=== PATIENT | male | born 1990 | race Caucasian/White ===

== ENCOUNTER 2024-09-01 12:21 | Inpatient (IN) | payer MEDICAID, OTHER, SELFPAY ==
[~2024-09-01] VITALS: Ht 149.9 cm; Wt 74.6 kg
[2024-09-01 13:31] LABS: BASO # 0.1 10^3/uL (0.0-0.2); BASO % 0.4 % (0.0-1.0); EOS # 0.1 10^3/uL (0.0-0.5); EOS % 0.7 % (0.0-3.0); HEMATOCRIT 36.5 % (42.0-52.0); HEMOGLOBIN 11.9 g/dl (13.5-17.5); LYMPH # 1.5 10^3/uL (1.5-5.0); LYMPH % 10.1 % (24.0-44.0); MEAN CORPUSCULAR HEMOGLOBIN 26.1 pg (27.0-33.0); MEAN CORPUSCULAR HGB CONC 32.6 g/dl (32.0-36.5); MONO # 0.8 10^3/uL (0.0-0.8); MONO % 5.5 % (2.0-8.0); NEUTROPHILS # 12.4 10^3/uL (1.5-8.5); NEUTROPHILS % 82.8 % (36.0-66.0); PLATELET COUNT, AUTOMATED 387 10^3/uL (150-450); RED BLOOD COUNT 4.56 10^6/uL (4.30-6.10)
[2024-09-01 13:46] LABS: ERYTHROCYTE SEDIMENTATION RATE 114 mm/hr (0-15)
[2024-09-01 13:47] LABS: BLOOD UREA NITROGEN 8 MG/DL (9-23); CALCIUM LEVEL 8.2 MG/DL (8.5-10.1); CARBON DIOXIDE LEVEL 29 MMOL/L (20-31); CHLORIDE LEVEL 93 MMOL/L (98-107); GLOMERULAR FILTRATION RATE > 60.0 (>60); GLUCOSE, FASTING 134 MG/DL (60-100); POTASSIUM SERUM 3.1 MMOL/L (3.5-5.1); SODIUM LEVEL 131 MMOL/L (136-145)
[2024-09-01 14:00] LABS: C REACTIVE PROTEIN QUANTITATIV 24.28 MG/DL (<1.0)
[2024-09-01] MEDS ORDERED: ISOVUE-370 76% 100ML VIAL As Ordered ONE (14:14)
[2024-09-01] MEDS: ONDANSETRON 4MG 2ML VIAL IV ONE (14:56)
[2024-09-01] MEDS: MORPHINE 4 MG/ML 1ML VIAL IV ONE (15:07)
[2024-09-01] MEDS: PIPERACILLIN/TAZOBACTAM SOD 3.375 GM in DEXTROSE 5% (D5W) ADV/MINI-BAG 50 ML IV ONE (15:07)
[2024-09-01] MEDS: NS (Normal Saline) 0.9% 1,990 ML in IV 1 EA IV ONE (15:08)
[2024-09-01] MEDS: ACETAMINOPHEN *IV* 1,000 MG in IV 1 EA IV ONE (16:00)
[2024-09-01] MEDS ORDERED: SERT50TA29 PO (16:34)
[2024-09-01] MEDS ORDERED: LISI10TA22 PO (16:34)
[2024-09-01] MEDS ORDERED: LEVO25TA5 PO (16:34)
[2024-09-01] MEDS ORDERED: PANT-23 PO (16:37)
[2024-09-01] MEDS ORDERED: HYDR-3363 PO (16:39)
[2024-09-01] MEDS ORDERED: HOME MED LIST COMPLETE! XX SCH (16:40)
[2024-09-01] MEDS ORDERED: ACETAMINOPHEN 325 MG TAB PO PRN (17:20)
[2024-09-01] MEDS: VANCOMYCIN HCL 1,250 MG, VIAL MATE ADAPTER 1 EACH in NS 250 ML IV ONE (18:07)
[2024-09-01 18:54] LABS: INR 1.17; PARTIAL THROMBOPLASTIN TIME 29.4 SECONDS (24.8-34.2); PROTHROMBIN TIME 15.2 SECONDS (12.5-14.5)
[2024-09-01 19:06] LABS: ALBUMIN 2.2 G/DL (3.2-5.2); BILIRUBIN,DIRECT 0.3 MG/DL (<0.4); BILIRUBIN,TOTAL 0.5 MG/DL (0.3-1.2); TOTAL PROTEIN 5.9 G/DL (5.7-8.2)
[2024-09-01] MEDS: KETOROLAC 30 MG/ML 1ML VIAL IV PRN (19:44)
[2024-09-01] MEDS ORDERED: POTASSIUM CHLORIDE 10MEQ SR TABLET PO SCH (20:00)
[2024-09-01] MEDS: ONDANSETRON 4MG 2ML VIAL IV PRN (20:13)
[2024-09-01] MEDS: NS (Normal Saline) 0.9% 1,000 ML IV SCH (20:30)
[2024-09-01 21:00] VITALS: BP 125/71; TEMP 97.6; O2SAT 97
[2024-09-01] MEDS ORDERED: PANTOPRAZOLE 40MG TAB (PROTONIX) PO SCH (21:00)
[2024-09-01] MEDS: oxyCODONE 5MG TAB PO PRN (21:23)
[2024-09-01] MEDS: PIPERACILLIN/TAZOBACTAM SOD 3.375 GM in DEXTROSE 5% (D5W) ADV/MINI-BAG 50 ML IV SCH (21:23)
[2024-09-01] MEDS: PANTOPRAZOLE 40MG VIAL IV SCH (21:30)
[2024-09-01] MEDS: KCL 10MEQ/100ML SWI (KRUN) 10 MEQ in IV 1 EA IV SCH (21:30)
[2024-09-01 22:10] LABS: BLOOD UREA NITROGEN 6 MG/DL (9-23); CALCIUM LEVEL 7.5 MG/DL (8.5-10.1); CARBON DIOXIDE LEVEL 27 MMOL/L (20-31); CHLORIDE LEVEL 102 MMOL/L (98-107); CREATININE FOR GFR 0.61 MG/DL (0.70-1.30); GLOMERULAR FILTRATION RATE > 60.0 (>60); GLUCOSE, FASTING 94 MG/DL (60-100); POTASSIUM SERUM 3.1 MMOL/L (3.5-5.1); SODIUM LEVEL 138 MMOL/L (136-145)
[2024-09-01 23:48] VITALS: BP 130/72; TEMP 98; O2SAT 98
[2024-09-02] VITALS (7 sets, daily range): BP systolic 101–134; BP diastolic 61–80; TEMP 97.3–98.6; O2SAT 95–99
[2024-09-02] MEDS: VANCOMYCIN HCL 1,000 MG, VIAL MATE ADAPTER 1 EACH in NS 250 ML IV SCH ×2 (00:24→09:56)
[2024-09-02] MEDS: ACETAMINOPHEN *IV* 1,000 MG in IV 1 EA IV ONE (00:24)
[2024-09-02] MEDS: POTASSIUM CHLORIDE 10% LIQ 20MEQ/15ML UDC PO ONE (00:24)
[2024-09-02] MEDS: HEPARIN SOD (PORCINE) 5000UNITS/ML 1ML VIAL/SYRINGE SC SCH (05:09)
[2024-09-02] MEDS: LEVOTHYROXINE 25MCG TABLET (0.025MG) PO SCH (05:09)
[2024-09-02] MEDS: PROMETHAZINE 25MG/ML 1ML VIAL IM ONE (05:20)
[2024-09-02 06:29] LABS: HEMATOCRIT 32.2 % (42.0-52.0); HEMOGLOBIN 10.2 g/dl (13.5-17.5); MEAN CORPUSCULAR HGB CONC 31.7 g/dl (32.0-36.5); MEAN CORPUSCULAR VOLUME 82.1 fl (80.0-96.0); RED BLOOD COUNT 3.92 10^6/uL (4.30-6.10); WHITE BLOOD COUNT 10.8 10^3/uL (4.0-10.0)
[2024-09-02 06:32] LABS: PLATELET COUNT, AUTOMATED 287 10^3/uL (150-450)
[2024-09-02 06:39] LABS: ALKALINE PHOSPHATASE 132 U/L (40-129); ALT/SGPT 65 U/L (7.0-40); AST/SGOT 41 U/L (<34); BILIRUBIN,TOTAL 0.3 MG/DL (0.3-1.2); BLOOD UREA NITROGEN 6 MG/DL (9-23); CALCIUM LEVEL 7.5 MG/DL (8.5-10.1); CARBON DIOXIDE LEVEL 26 MMOL/L (20-31); CHLORIDE LEVEL 105 MMOL/L (98-107); CREATININE FOR GFR 0.58 MG/DL (0.70-1.30); GLOMERULAR FILTRATION RATE > 60.0 (>60); GLUCOSE, FASTING 95 MG/DL (60-100); POTASSIUM SERUM 3.3 MMOL/L (3.5-5.1); SODIUM LEVEL 138 MMOL/L (136-145); TOTAL PROTEIN 5.5 G/DL (5.7-8.2)
[2024-09-02 08:08] LABS: VANCOMYCIN RANDOM 18.3 UG/ML
[2024-09-02] MEDS: POTASSIUM CHLORIDE 10MEQ SR TABLET PO SCH (08:26)
[2024-09-02] MEDS: SERTRALINE HCL 50 MG TAB PO SCH (08:26)
[2024-09-02] MEDS: LORazepam 2 MG/ML 1ML VIAL IV ONE (13:31)
[2024-09-02] MEDS: MORPHINE 4 MG/ML 1ML VIAL IV ONE (13:31)
[2024-09-02] MEDS: MOM 30ML SUSPENSION UDC PO SCH (16:29)
[2024-09-02] MEDS: MIRALAX *UNIT DOSE* 17GM PACKET PO SCH (18:15)
[2024-09-02] MEDS: SANTYL OINT 30GM TOP SCH (20:21)
[2024-09-02] MEDS: oxyCODONE 5MG TAB PO PRN (23:56)
[2024-09-03] VITALS (8 sets, daily range): BP systolic 99–142; BP diastolic 55–94; TEMP 96.8–98; O2SAT 94–98
[2024-09-03 05:56] LABS: HEMOGLOBIN 9.9 g/dl (13.5-17.5); MEAN CORPUSCULAR HEMOGLOBIN 26.1 pg (27.0-33.0); MEAN CORPUSCULAR HGB CONC 30.9 g/dl (32.0-36.5); MEAN CORPUSCULAR VOLUME 84.2 fl (80.0-96.0); PLATELET COUNT, AUTOMATED 290 10^3/uL (150-450); WHITE BLOOD COUNT 7.9 10^3/uL (4.0-10.0)
[2024-09-03 06:18] LABS: ALBUMIN 1.8 G/DL (3.2-5.2); ALKALINE PHOSPHATASE 102 U/L (40-129); ALT/SGPT 47 U/L (7.0-40); AST/SGOT 22 U/L (<34); BILIRUBIN,TOTAL 0.2 MG/DL (0.3-1.2); BLOOD UREA NITROGEN 9 MG/DL (9-23); CALCIUM LEVEL 7.7 MG/DL (8.5-10.1); CARBON DIOXIDE LEVEL 25 MMOL/L (20-31); CHLORIDE LEVEL 110 MMOL/L (98-107); GLOMERULAR FILTRATION RATE > 60.0 (>60); GLUCOSE, FASTING 87 MG/DL (60-100); POTASSIUM SERUM 3.8 MMOL/L (3.5-5.1); SODIUM LEVEL 144 MMOL/L (136-145); TOTAL PROTEIN 5.1 G/DL (5.7-8.2)
[2024-09-03] MEDS: DOCUSATE SODIUM 100MG CAPSULE PO SCH (08:22)
[2024-09-03] MEDS: POTASSIUM CHLORIDE 10MEQ SR TABLET PO SCH (08:22)
[2024-09-03] MEDS: SENNA 8.6 MG TAB (SENOKOT) PO SCH (20:29)
[2024-09-04 03:47] VITALS: BP 136/87; TEMP 98; O2SAT 94
[2024-09-04 05:10] LABS: HEMATOCRIT 33.2 % (42.0-52.0); HEMOGLOBIN 10.3 g/dl (13.5-17.5); MEAN CORPUSCULAR HEMOGLOBIN 26.1 pg (27.0-33.0); MEAN CORPUSCULAR VOLUME 84.3 fl (80.0-96.0); PLATELET COUNT, AUTOMATED 330 10^3/uL (150-450); RED BLOOD COUNT 3.94 10^6/uL (4.30-6.10); WHITE BLOOD COUNT 7.3 10^3/uL (4.0-10.0)
[2024-09-04 05:39] LABS: ALBUMIN 1.8 G/DL (3.2-5.2); ALKALINE PHOSPHATASE 98 U/L (40-129); ALT/SGPT 38 U/L (7.0-40); AST/SGOT 22 U/L (<34); BILIRUBIN,TOTAL < 0.2 MG/DL (0.3-1.2); BLOOD UREA NITROGEN 12 MG/DL (9-23); CALCIUM LEVEL 7.5 MG/DL (8.5-10.1); CARBON DIOXIDE LEVEL 25 MMOL/L (20-31); CHLORIDE LEVEL 109 MMOL/L (98-107); CREATININE FOR GFR 1.59 MG/DL (0.70-1.30); GLOMERULAR FILTRATION RATE 58.8 (>60); GLUCOSE, FASTING 93 MG/DL (60-100); POTASSIUM SERUM 3.9 MMOL/L (3.5-5.1); SODIUM LEVEL 142 MMOL/L (136-145); TOTAL PROTEIN 5.1 G/DL (5.7-8.2)
[2024-09-04 07:31] VITALS: BP 126/72; TEMP 97.6; O2SAT 97
[2024-09-04] MEDS: NS (Normal Saline) 0.9% 1,000 ML IV SCH (08:06)
[2024-09-04 12:09] VITALS: BP 144/86; TEMP 98.1; O2SAT 98
[2024-09-04] MEDS: LACTULOSE 20GM/30ML SYRUP UDC PO SCH (12:58)
[2024-09-04] MEDS ORDERED: PERCOCET 5MG/325MG TAB PO PRN (13:10)
[2024-09-04] MEDS: PERCOCET 5MG/325MG TAB PO PRN (13:23)
[2024-09-04 16:16] VITALS: BP 148/87; TEMP 98.2; O2SAT 97
[2024-09-04 19:51] VITALS: BP 127/79; TEMP 98.2; O2SAT 97
[2024-09-04 23:56] VITALS: BP 115/72; TEMP 98.5; O2SAT 98
[2024-09-05 03:16] VITALS: BP 131/82; TEMP 98.2; O2SAT 98
[2024-09-05] MEDS: PROMETHAZINE 25MG/ML 1ML VIAL IM ONE (04:15)
[2024-09-05] MEDS: PROMETHAZINE 25 MG TAB PO ONE (04:38)
[2024-09-05 05:43] LABS: HEMATOCRIT 35.2 % (42.0-52.0); MEAN CORPUSCULAR HEMOGLOBIN 26.3 pg (27.0-33.0); MEAN CORPUSCULAR HGB CONC 31.3 g/dl (32.0-36.5); PLATELET COUNT, AUTOMATED 365 10^3/uL (150-450); RED BLOOD COUNT 4.19 10^6/uL (4.30-6.10); WHITE BLOOD COUNT 6.7 10^3/uL (4.0-10.0)
[2024-09-05 06:20] LABS: ALBUMIN 2.1 G/DL (3.2-5.2); ALKALINE PHOSPHATASE 116 U/L (40-129); ALT/SGPT 36 U/L (7.0-40); AST/SGOT 23 U/L (<34); BILIRUBIN,TOTAL 0.2 MG/DL (0.3-1.2); BLOOD UREA NITROGEN 7 MG/DL (9-23); CALCIUM LEVEL 7.5 MG/DL (8.5-10.1); CARBON DIOXIDE LEVEL 25 MMOL/L (20-31); CHLORIDE LEVEL 109 MMOL/L (98-107); CREATININE FOR GFR 1.31 MG/DL (0.70-1.30); GLOMERULAR FILTRATION RATE > 60.0 (>60); GLUCOSE, FASTING 92 MG/DL (60-100); SODIUM LEVEL 144 MMOL/L (136-145); TOTAL PROTEIN 5.9 G/DL (5.7-8.2)
[2024-09-05 06:31] VITALS: BP 141/91; TEMP 97.9; O2SAT 100
[2024-09-05 16:31] VITALS: BP 143/76; TEMP 98.3; O2SAT 100
[2024-09-05 20:15] VITALS: BP 146/79; TEMP 99.2; O2SAT 98
[2024-09-05 23:06] VITALS: BP 135/63; TEMP 98.6; O2SAT 95
[2024-09-06 04:31] VITALS: BP 136/80; TEMP 98.1; O2SAT 96
[2024-09-06 06:16] LABS: HEMATOCRIT 32.2 % (42.0-52.0); HEMOGLOBIN 10.2 g/dl (13.5-17.5); MEAN CORPUSCULAR HEMOGLOBIN 26.2 pg (27.0-33.0); MEAN CORPUSCULAR HGB CONC 31.7 g/dl (32.0-36.5); MEAN CORPUSCULAR VOLUME 82.6 fl (80.0-96.0); PLATELET COUNT, AUTOMATED 383 10^3/uL (150-450); WHITE BLOOD COUNT 7.2 10^3/uL (4.0-10.0)
[2024-09-06 06:35] LABS: ALBUMIN 1.8 G/DL (3.2-5.2); ALKALINE PHOSPHATASE 109 U/L (40-129); ALT/SGPT 30 U/L (7.0-40); AST/SGOT 18 U/L (<34); BILIRUBIN,TOTAL < 0.2 MG/DL (0.3-1.2); BLOOD UREA NITROGEN 8 MG/DL (9-23); CALCIUM LEVEL 7.3 MG/DL (8.5-10.1); CARBON DIOXIDE LEVEL 26 MMOL/L (20-31); CHLORIDE LEVEL 105 MMOL/L (98-107); CREATININE FOR GFR 1.16 MG/DL (0.70-1.30); GLOMERULAR FILTRATION RATE > 60.0 (>60); GLUCOSE, FASTING 110 MG/DL (60-100); POTASSIUM SERUM 3.4 MMOL/L (3.5-5.1); SODIUM LEVEL 141 MMOL/L (136-145); TOTAL PROTEIN 5.2 G/DL (5.7-8.2)
[2024-09-06 08:00] VITALS: BP 134/80; TEMP 97.9; O2SAT 97
[2024-09-06] MEDS ORDERED: AMLO1TAB24 PO (08:25)
[2024-09-06] MEDS ORDERED: ACET32TAB PO (08:25)
[2024-09-06] MEDS ORDERED: AMOX875T2 PO (08:25)
[2024-09-06] MEDS ORDERED: PROB250C PO (08:25)
[2024-09-06] MEDS: POTASSIUM CHLORIDE 10MEQ SR TABLET PO ONE (08:41)
[2024-09-06 12:00] VITALS: BP 131/66; TEMP 98; O2SAT 96
== END 2024-09-06 15:00 | disposition home health service (06) | DRG 710 ==
LOC: M ED 12:21 → M ED INP 17:17 → M PCU 20:34
PROVIDERS: ADMIT Internal Medicine; ATTEND Internal Medicine
PROC: 0QD10ZZ Extraction of Sacrum, Open Approach (ICD-10-PCS; principal; 2024-09-02)
DX: A41.9 Sepsis, unspecified organism (principal); L89.224 Pressure ulcer of left hip, stage 4; M86.8X5 Other osteomyelitis, thigh; I10 Essential (primary) hypertension; E03.9 Hypothyroidism, unspecified; E87.6 Hypokalemia; B95.4 Other streptococcus as the cause of diseases classified elsewhere; R32 Unspecified urinary incontinence; K52.9 Noninfective gastroenteritis and colitis, unspecified; K59.00 Constipation, unspecified; B95.61 Methicillin susceptible Staphylococcus aureus infection as the cause of diseases classified elsewhere; Z98.2 Presence of cerebrospinal fluid drainage device; Z79.890 Hormone replacement therapy; Z79.899 Other long term (current) drug therapy; Z91.040 Latex allergy status

== ENCOUNTER → 2024-09-21 | Outpatient (CLI) | payer MEDICAID ==
[~2024-09-21] MED LIST: ACET32TAB PO; AMLO1TAB24 PO; AMOX875T2 PO; HYDR-3363 PO; LEVO25TA5 PO; LISI10TA22 PO; PANT-23 PO; PROB250C PO; SERT50TA29 PO; SODIUM CHLORIDE 0.9% INJ 10 ML SYR IV PRN; SODIUM CHLORIDE 0.9% INJ 10 ML SYR IV SCH
== END ==
LOC: M IRPRO 09:59
PROVIDERS: ATTEND Internal Medicine Infectious Disease
DX: M86.9 Osteomyelitis, unspecified (principal)
CPT/HCPCS: 36569; C1751

== ENCOUNTER → 2024-09-22 | Outpatient (REF) | payer MEDICAID, OTHER ==
[~2024-09-22] MED LIST changes: -SODIUM CHLORIDE 0.9% INJ 10 ML SYR IV PRN; -SODIUM CHLORIDE 0.9% INJ 10 ML SYR IV SCH
== END ==
LOC: M SFHCWOUN 14:27
PROVIDERS: ATTEND Surgery
DX: L89.324 Pressure ulcer of left buttock, stage 4 (principal)

== ENCOUNTER → 2024-10-18 | Outpatient (CLI) | payer MEDICAID, OTHER ==
[2024-10-18 15:53] LABS: ERYTHROCYTE SEDIMENTATION RATE 84 mm/hr (0-15)
[2024-10-18 15:59] LABS: HEMATOCRIT 33.6 % (42.0-52.0); HEMOGLOBIN 10.4 g/dl (13.5-17.5); MEAN CORPUSCULAR HEMOGLOBIN 26.2 pg (27.0-33.0); MEAN CORPUSCULAR VOLUME 84.6 fl (80.0-96.0); PLATELET COUNT, AUTOMATED 431 10^3/uL (150-450); RED BLOOD COUNT 3.97 10^6/uL (4.30-6.10); WHITE BLOOD COUNT 5.3 10^3/uL (4.0-10.0)
[2024-10-18 16:23] LABS: ATYPICAL LYMPH 2 % (0-5); EOSINOPHILS 34 % (0-3); LYMPHOCYTES 26 % (16-44); MONOCYTES 10 % (0-5); MYELOCYTES 1 % (0-0); NEUTROPHILS 21 % (28-66); PLATELET ESTIMATE INCREASED (NORMAL)
[2024-10-18 16:41] LABS: ALBUMIN 2.8 G/DL (3.2-5.2); ALKALINE PHOSPHATASE 153 U/L (40-129); ALT/SGPT 40 U/L (7.0-40); AST/SGOT 22 U/L (<34); BILIRUBIN,TOTAL 0.3 MG/DL (0.3-1.2); BLOOD UREA NITROGEN 14 MG/DL (9-23); C REACTIVE PROTEIN QUANTITATIV 12.43 MG/DL (<1.0); CARBON DIOXIDE LEVEL 29 MMOL/L (20-31); CHLORIDE LEVEL 100 MMOL/L (98-107); CREATININE FOR GFR 0.74 MG/DL (0.70-1.30); GLOMERULAR FILTRATION RATE > 90.0 (>60); GLUCOSE, FASTING 87 MG/DL (60-100); POTASSIUM SERUM 4.2 MMOL/L (3.5-5.1); SODIUM LEVEL 138 MMOL/L (136-145); TOTAL PROTEIN 6.9 G/DL (5.7-8.2)
== END ==
LOC: M PLALAB 12:23
PROVIDERS: ATTEND Internal Medicine Infectious Disease
DX: A49.01 Methicillin susceptible Staphylococcus aureus infection, unspecified site (principal)

== ENCOUNTER → 2025-04-22 | Outpatient (REF) | payer OTHER ==
[2025-04-22 17:02] LABS: CALCIUM LEVEL 8.8 MG/DL (8.5-10.1); CARBON DIOXIDE LEVEL 31 MMOL/L (20-31); CHLORIDE LEVEL 101 MMOL/L (98-107); CREATININE FOR GFR 0.67 MG/DL (0.70-1.30); GLOMERULAR FILTRATION RATE > 90.0 (>60); POTASSIUM SERUM 3.5 MMOL/L (3.5-5.1); SODIUM LEVEL 141 MMOL/L (136-145)
== END ==
LOC: M LAB REF 16:26
PROVIDERS: ATTEND Family Medicine Addiction Medicine
DX: E87.6 Hypokalemia (principal)